=== PATIENT | female | born 1955 | race Caucasian/White ===

== ENCOUNTER 2020-05-12 08:40 | Outpatient (CLI) | payer OTHER, SELFPAY ==
[2020-05-12 09:19] LABS: Basophils Percent Auto 0.5 % (0.2-1.2); Eosinophils Absolute Auto 0.3 K/mm3 (0-0.3); Eosinophils Percent Auto 4.1 % (0-4.4); Hematocrit 41.5 % (37.0-47.0); Hemoglobin 13.9 g/dL (12.0-15.0); Immature Granulocyte Absolute 0.04 K/mm3 (0.00-0.031); Immature Granulocyte Percent A 0.5 % (0-0.5); Lymphocytes Absolute Auto 1.87 K/mm3 (0.9-3.2); Lymphocytes Percent Auto 23.1 % (18.3-44.2); Mean Corpuscular HGB Conc 33.5 g/dl (32-36); Mean Corpuscular Hemoglobin 30.8 pg (26-34); Mean Corpuscular Volume 91.8 fl (80-100); Mean Platelet Volume 10.7 fl (7.4-10.4); Monocytes Absolute Auto 0.7 K/mm3 (0.1-0.6); Monocytes Percent Auto 8.4 % (2.6-8.5); Neutrophils Absolute Auto 5.2 K/mm3 (1.3-6.7); Neutrophils Percent Auto 63.4 % (45.5-73.1); Platelet Count Result 220 k/mm3 (150-375); Red Blood Count 4.52 M/mm3 (4.2-5.4); Red Cell Distribution Width 14.8 % (11.5-14.5); White Blood Count 8.1 K/mm3 (4.5-10.0)
[2020-05-12 09:30] LABS: Alanine Aminotransferase 29 U/L (4-35); Albumin Level 4.3 g/dL (3.5-5.1); Alkaline Phosphatase 93 U/L (38-126); Anion Gap 5 mmol/L (8-16); Aspartate Amino Transferase 31 U/L (14-36); Bilirubin,Total 0.5 mg/dL (0.2-1.3); Blood Urea Nitrogen 18 mg/dL (7-17); Calcium 9.2 mg/dL (8.4-10.2); Carbon Dioxide 29 mmol/L (22-30); Chloride 105 mmol/L (98-107); Cholesterol 233 mg/dL (0-200); Estimated Glomerular Filt Rate > 60; Glucose 143 mg/dL (65-105); HDL Direct 43 mg/dL; Potassium 4.6 mmol/L (3.4-5.0); Sodium 139 mmol/L (137-145); Triglycerides 260 mg/dL (<150)
[2020-05-12 09:40] LABS: LDL Cholesterol Direct 163 mg/dL
[2020-05-12 09:57] LABS: Creatinine Urine 69.3 mg/dL
[2020-05-12 10:01] LABS: MALB Creatinine Ratio 15.4 mg/g (0-30); Microalbumin Urine Random 10.7 mg/L (0-16.7)
[2020-05-12 10:09] LABS: Free T4 Free Thyroxine 0.96 ng/mL (0.78-2.19)
== END 2020-05-12 08:41 | disposition home or self-care (01) ==
PROVIDERS: PCP Family Medicine; Visit Provider Physician Assistant Medical
DX: E11.9 Type 2 diabetes mellitus without complications (principal); E03.9 Hypothyroidism, unspecified; Z13.220 Encounter for screening for lipoid disorders
CPT/HCPCS: 36415; 80053; 80061; 82043; 84439; 84443; 85025

== ENCOUNTER 2020-06-20 13:58 | Outpatient (CLI) | payer OTHER, SELFPAY ==
--- NOTE | ~2020-06-20 | XR_ITS ---
XR ankle LT min 3V 06/20/2020 14:15 Indication: Status post fall. Left ankle pain. Procedure: 4 views left ankle Comparison: No prior studies for comparison. Findings: There is a possible osteochondral defect medial aspect of the talar dome. Ankle mortise int act. No acute fracture or traumatic malalignment. Small degenerative calcaneal enthesophyte. No focal soft tissue abnormality. No foreign bodies. Impression: 1: No acute fracture. 2: Possible osteochondral defect medial aspect of the talar dome. Reviewed, dictated and finalized at location A. NDER [employer]LE [employer]ER Impression: 1: No acute fracture. 2: Possible osteochondral defect medial aspect of the talar dome.
== END 2020-06-20 13:59 | disposition home or self-care (01) ==
LOC: ANHIMG 14:03
PROVIDERS: PCP Family Medicine; Visit Provider Nurse Practitioner Family
DX: M25.572 Pain in left ankle and joints of left foot (principal)
CPT/HCPCS: 73610

== ENCOUNTER 2021-06-06 09:34 | Outpatient (CLI) | payer OTHER, SELFPAY ==
[2021-06-06 10:49] LABS: Cholesterol 168 mg/dL (0-200); HDL Direct 43 mg/dL; Triglycerides 169 mg/dL (<150)
[2021-06-06 11:00] LABS: LDL Cholesterol Direct 93 mg/dL
[2021-06-06 11:12] LABS: Creatinine Urine 73.7 mg/dL
[2021-06-06 11:23] LABS: MALB Creatinine Ratio < 8.1 mg/g (0-30); Microalbumin Urine Random < 6.0 mg/L (0-16.7)
[2021-06-06 11:46] LABS: Free T4 Free Thyroxine 1.05 ng/mL (0.78-2.19)
== END 2021-06-06 09:35 | disposition home or self-care (01) ==
PROVIDERS: PCP Family Medicine; Visit Provider Physician Assistant Medical
DX: E03.9 Hypothyroidism, unspecified (principal); E78.5 Hyperlipidemia, unspecified; E11.9 Type 2 diabetes mellitus without complications
CPT/HCPCS: 36415; 80061; 82043; 84439; 84443

== ENCOUNTER 2021-12-01 12:08 | Outpatient (CLI) | payer OTHER, SELFPAY ==
--- NOTE | ~2021-12-01 | XR_ITS ---
EXAM: XR knee RT 2V DATE: 12/01/2021 12:33 HISTORY: M25.569unspecified knee, right medial pain, no injury . COMPARISON: None available. FINDINGS: Decreased mineralization. No fracture or dislocation. No lytic or blastic lesion. Severe m edial joint space narrowing with loss of valgus alignment. Moderate tricompartmental osteophytosis. S mall volume right knee joint effusion. No erosion or periosteal change. Soft tissues within normal li mits. IMPRESSION: Tricompartmental right knee osteoarthritis, severe in the medial compartment. Reviewed, dictated and finalized at location K. IMPRESSION: Tricompartmental right knee osteoarthritis, severe in the medial co mpartment.
== END 2021-12-01 12:09 | disposition home or self-care (01) ==
LOC: ANHIMG 12:11
PROVIDERS: PCP Family Medicine; Visit Provider Nurse Practitioner Family
DX: M17.11 Unilateral primary osteoarthritis, right knee (principal)
CPT/HCPCS: 73560

== ENCOUNTER → 2022-08-11 15:11 | Outpatient (CLI) | payer MEDICARE, OTHER, SELFPAY ==
--- NOTE | ~2022-08-11 | XR_ITS ---
EXAMINATION: XR chest 2V Exam Date/Time: 08/11/2022 15:45 CDT HISTORY: R05.9 - Cough, unspecified Comparison: 12/12/2018. RESULT: Lines, tubes, and devices: None. Lungs and pleura: Diffuse reticular opacities. Streaky bibasilar opacities, likely atelectasis. Cardiomediastinal silhouette: Stable. Other: No acute osseous or upper abdominal finding. IMPRESSION: Pulmonary opacities may represent mild interstitial edema or respiratory bronchiolitis depending on t he clinical context. Reviewed, dictated and finalized at location K. IMPRESSION: Pulmonary opacities may represent mild interstitial edema or respiratory bronch iolitis depending on the clinical context.
== END ==
PROVIDERS: PCP Family Medicine; Visit Provider Nurse Practitioner Family
DX: R05.9 Cough, unspecified (principal); R91.8 Other nonspecific abnormal finding of lung field
CPT/HCPCS: 71046

== ENCOUNTER 2023-06-04 09:59 | Outpatient (CLI) | payer MEDICARE, OTHER, SELFPAY ==
--- NOTE | ~2023-06-04 | XR_ITS ---
XR knee LT 3V 06/04/2023 10:17 Indication: Chronic left knee pain Procedure: 4 views left knee Comparison: No prior studies for comparison. Findings: There is severe tricompartment osteoarthritis of the left knee. No fracture or traumatic ma lalignment. No joint effusion. No foreign bodies. Impression: 1: Severe tricompartment osteoarthritis of the left knee. Reviewed, dictated and finalized at location A. [employer]IC ENGINEER Impression: 1: Severe tricompartment osteoarthritis of the left knee.
== END 2023-06-04 10:00 | disposition home or self-care (01) ==
LOC: ANHIMG 10:00
PROVIDERS: PCP Family Medicine; Visit Provider Physician Assistant Medical
DX: M17.12 Unilateral primary osteoarthritis, left knee (principal)
CPT/HCPCS: 73562